=== PATIENT | female | born 1995 | race Hispanic/Latino ===

== ENCOUNTER 2017-12-06 09:52 | Outpatient (CLI) | payer BC, OTHER ==
--- NOTE | 2017-12-09 10:50 | EEG ---
Referring Physician: DR. SPIKE TREVIÑO EEG # [id number] TEST TYPE: ROUTINE OUTPATIENT DATE OF EE12/06/17 REASON FOR EEG: COMPLEX PARTIAL SEIZURES EEG DESCRIPTION: This is a 21 channel EEG recording. Electrodes are placed using the 10-20 international electrode placement. The background rhythm is predominately 9-10 hertz, medium voltage alpha rhythm. There are periods of drowsiness with 6-7 hertz, low to medium voltage theta rhythm. HYPERVENTILATION: Showed no effect. PHOTIC STIMULATION: Showed no effect. There are no epileptiform discharges, sharp transients or asymmetry noted. EKG LEAD: Shows 72 beats per minute, regular rhythm. IMPRESSION: THIS IS A NORMAL AWAKE AND DROWSY EEG. 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
== END 2017-12-06 09:53 | disposition home or self-care (01) ==
LOC: EEG 09:52
PROVIDERS: ATTEND Psychiatry & Neurology Neurology
DX: G40.209 Localization-related (focal) (partial) symptomatic epilepsy and epileptic syndromes with complex partial seizures, not intractable, without status epilepticus (principal)
CPT/HCPCS: 95816

== ENCOUNTER 2018-02-01 14:07 | Day surgery (SDC) | payer SELFPAY ==
--- NOTE | 2018-02-01 14:52 | PDOC.LDHP ---
Labor and Delivery H&P Chief complaint: other (vaginal spotting) HPI: 22 yo at 24.0 by LMP/11.6 wk US. Presents with CC of single episode of vaginal spotting last night at 2100. States she and her significant other had intercourse yesterday morning. Denies hx STD. Denies vaginal bleeding, discharge , dysuria, LOF, or cramps/contractions. Reports daily movement. Current gestational age (weeks): 24 (24.0) Due date: 05/24/18 Dating criteria: last menstrual period (c/w 11.6 wk US) Grav: 1 Para: 0 Current complications: other (choriod plexus on 2T US. monitored by [facility].) Abnormal US findings: Yes (see above ) Past Medical History: seizure disorder NOS. Current medications: pre- vitamins, other (keppra) Previous surgical history: none - Physical Exam Vital signs reviewed and normal: yes General: NAD, resting Heart: other Lungs: CTAB Abdomen: gravid Extremeties: no edema Neshanic contractions every: FHT present. rate 150. appropriate for gestational age. no CTx - OB Labs Blood type: A RH: positive Antibody Screen: negative HIV: negative RPR: negative HEPSAg: negative 1 hour GCT: unknown GBS: unknown Urine drug screen: negative (negative on 01/26/18) Rubella: immune - Assessment Post coital bleeding. - Plan -: counseled that mild post coital spotting is normal but advised to RTC if she experiences more that 2 episode. Given OB triage precautions. F/U PCP. D/C home. Discussed with Dr. Perez who was in agreement. <Wilbur Koroma - Last Filed: 02/01/18 15:23> <Renu Perez - Last Filed: 02/01/18 15:39> Allergies/Adverse Reactions: Allergies Allergy/AdvReac Type Severity Reaction Status Date / Time No Known Allergies Allergy Unverified 02/01/18 15:01 Attending Addendum - Attending Addendum Date/Time: 02/01/18 [id number] I personally evaluated the patient and discussed the management with Dr. Koroma. I agree with the History, Examination, Assessment and Plan documented above with any addition or exceptions noted below. 22 yo G1 at 24w presenting with single episode of dark brown spotting after sex. complicated by seizure disorder followed by MFM and neurology. No further spotting or bleeding. Placenta is posterior fundal. FHT is reassuring. Rh positive. Reassurance offered. D/C to home with return precautions. <Renu Perez - Last Filed: 02/01/18 15:39>
[2018-02-01 15:10] VITALS: BMI 23.8
== END 2018-02-01 16:05 | disposition home or self-care (01) ==
LOC: L&D/OP 14:07
PROVIDERS: ATTEND Family Medicine
DX: O26.852 Spotting complicating pregnancy, second trimester (principal); Z3A.24 24 weeks gestation of pregnancy
CPT/HCPCS: 99282